=== PATIENT | male | born 1975 | race Caucasian/White ===

== ENCOUNTER 2018-04-16 12:42 | Emergency (ER) | payer OTHER ==
[2018-04-16 12:54] VITALS: BP 138/87
--- NOTE | 2018-04-16 13:13 | UC ---
Abdominal Pain Female HPI - HPI Summary HPI Summary: epigastric abdominal pain x 3 days sudden onset after eating lunch, pain has been constant, 3 out of 10 , radiating to his chest and jaw worse with rest , better by being busy mild nausea, no vomiting , no diarrhea or constipation , no fever, no chills, no dysuria - History of Current Complaint Chief Complaint: UCAbdominalPain Stated Complaint: ABD PAIN Time Seen by Provider: 04/16/18 12:50 Hx Obtained From: Patient Onset/Duration: Sudden Onset, Lasting Days - 3, Still Present Timing: Constant Severity Initially: Mild Severity Currently: Moderate Pain Intensity: 1 Location: Epigastric Radiates to: Back, Chest Character: Burning, Cramping Aggravating Factor(s): Food, Other: - rest Alleviating Factor(s): Nothing Associated Signs and Symptoms: Negative: Fever, Cough, Chest Pain, Dizzy, Back Pain, Constipation, Blood in Stool, Urinary Symptoms, Decreased Appetite, Nausea , Vomiting, Diarrhea Allergies/Adverse Reactions: Allergies Allergy/AdvReac Type Severity Reaction Status Date / Time hay fever Allergy Congestion Uncoded 04/16/18 12:48 Home Medications: Home Medications Calcium Carbonate CHEW TAB* [Tums*] 1,500 mg PO ONCE PRN 04/16/18 [History Confirmed 04/16/18] PMH/Surg Hx/FS Hx/Imm Hx Previously Healthy: Yes - Surgical History Surgical History: None - Family History Known Family History: Negative: Diabetes - Social History Alcohol Use: Occasionally Substance Use Type: None Smoking Status (MU): Never Smoked Tobacco Review of Systems All Other Systems Reviewed And Are Negative: Yes Constitutional: Positive: Negative Skin: Positive: Negative Eyes: Positive: Negative ENT: Positive: Negative Respiratory: Positive: Negative Gastrointestinal: Positive: Abdominal Pain, Nausea. Negative: Vomiting, Diarrhea Genitourinary: Negative: Dysuria, Hematuria, Frequency, Urgency, Vaginal/Penile Burning, Vaginal/Penile Itching, Vaginal/Penile Discharge, Vaginal/Penile Pain, Vaginal/Penile Tenderness, Ulceration/Lesion, Abnormal Bleeding Is Patient Immunocompromised?: No Physical Exam Triage Information Reviewed: Yes Appearance: Well-Appearing, No Pain Distress, Well-Nourished Vital Signs: Initial Vital Signs Temp 97.3 F 04/16/18 12:49 Pulse 52 04/16/18 12:49 Resp 15 04/16/18 12:49 BP 138/87 04/16/18 12:49 Pulse Ox 100 04/16/18 12:49 Vital Signs Reviewed: Yes Eye Exam: Normal Eyes: Positive: Conjunctiva Clear ENT: Positive: Normal ENT inspection, Hearing grossly normal, Pharynx normal Neck: Positive: Supple, Nontender, No Lymphadenopathy Respiratory: Positive: Chest non-tender, Lungs clear, Normal breath sounds, No respiratory distress Cardiovascular: Positive: No Murmur, Bradycardia Abdomen Description: Positive: Soft, Other: - epigastric tenderness, negative Culver sign. Negative: CVA Tenderness (R), CVA Tenderness (L), Distended, Guarding Bowel Sounds: Positive: Present Abd Pain Female Course/Dx - Differential Dx/Diagnosis Provider Diagnosis: Gastritis Discharge - Sign-Out/Discharge Documenting (check all that apply): Patient Departure All imaging exams completed and their final reports reviewed: No Studies - Discharge Plan Condition: Stable Disposition: HOME Prescriptions: Omeprazole 40 mg PO DAILY #30 capsule. Patient Education Materials: Gastritis (ED) Referrals: Theresa Willis MD [Primary Care Provider] - 5 Days Additional Instructions: will order blood work check your liver function and pancreatic function call the office tomorrow for the results please go to Emergency room if increase pain, may need abdominal CT or abdominal Ultrasound - Billing Disposition and Condition Condition: STABLE Disposition: Home
[2018-04-16 19:09] LABS: ABS Basophils 0 10^3/ul (0-0.2); ABS Eosinophils 0.1 10^3/ul (0-0.6); ABS Lymphocytes 0.9 10^3/ul (1.0-4.8); ABS Monocytes 0.6 10^3/ul (0-0.8); ABS Nucleated RBC 0 10^3/ul; Eosinophil % 1.7 %; Hematocrit 43 % (42-52); Lymphocyte % 19.7 %; Mean Corpuscular HGB Conc 35 g/dl (31-36); Mean Corpuscular Hemoglobin 31 pg (27-31); Mean Corpuscular Volume 87 fL (80-94); Mean Platelet Volume 8.3 fL (7.4-10.4); Nucleated Red Blood Cells % 0.3; Platelet Count 240 10^3/ul (150-450); Red Cell Distribution Width 13 % (10.5-15); White Blood Count 4.6 10^3/ul (3.5-10.8)
[2018-04-16 19:13] LABS: Albumin 4.6 g/dL (3.2-5.2); Albumin/Globulin Ratio 1.9 (1-3); BUN/Creatinine Ratio 12.2 (8-20); Calcium 9.2 mg/dL (8.6-10.3); EGFR Non-African American 92.5 (>60); Globulin 2.4 g/dL (2-4); Total Bilirubin 0.5 mg/dL (0.2-1.0)
== END 2018-04-16 13:19 | disposition home or self-care (01) ==
LOC: UCCORT 12:42
DX: K29.70 Gastritis, unspecified, without bleeding (principal)
CPT/HCPCS: 36415; 80053; 82150; 83690; 85025; 93005; 99202; G0463

== ENCOUNTER 2018-11-24 11:32 | Emergency (ER) | payer OTHER ==
[2018-11-24 11:43] VITALS: BP 151/95
--- NOTE | 2018-11-24 12:00 | UC ---
Eye Complaint HPI - HPI Summary HPI Summary: Returned from [place] Sunday night. Pt states he put in a contact that was misshapen. Soon after, he felt right eye pain and put in a new pair of contacts. His right eye continued to bother him. He has flushed it several times and has been rubbing his right eye to the point the right upper eyelid was swollen this morning. He has also had pus drainage today. Denies any fever or chills. - History of Current Complaint Chief Complaint: UCEye Stated Complaint: RIGHT EYE CONCERN Time Seen by Provider: 11/24/18 11:59 Hx Obtained From: Patient Onset/Duration: Gradual Onset Timing: Constant Severity Initially: Mild Severity Currently: Moderate Pain Intensity: 8 Location of Injury: Other - no injury Character: Dull Aggravating Factor(s): Light, Contact Lens Alleviating Factor(s): Nothing Associated Signs And Symptoms: Positive: Photophobia, Drainage (Purulent). Negative: Vision Impairment Bilateral, Vision Impairment Right, Vision Impairment Left, Fever, Swelling - Allergies/Home Medications Allergies/Adverse Reactions: Allergies Allergy/AdvReac Type Severity Reaction Status Date / Time hay fever Allergy Congestion Uncoded 11/24/18 11:42 PMH/Surg Hx/FS Hx/Imm Hx Previously Healthy: Yes - Surgical History Surgical History: None - Family History Known Family History: Positive: Non-Contributory Negative: Diabetes - Social History Alcohol Use: Occasionally Substance Use Type: None Smoking Status (MU): Never Smoked Tobacco Review of Systems All Other Systems Reviewed And Are Negative: Yes Eyes: Positive: Drainage - Pus drainage, Eye Redness, Photophobia - Mildly light sensitive. Is Patient Immunocompromised?: No Physical Exam Triage Information Reviewed: Yes Appearance: Well-Appearing, No Pain Distress, Well-Nourished Vital Signs: Initial Vital Signs Temp 98.1 F 11/24/18 11:40 Pulse 77 11/24/18 11:40 Resp 18 11/24/18 11:40 BP 151/95 11/24/18 11:40 Pulse Ox 99 11/24/18 11:40 Vital Signs Reviewed: Yes Eyes: Positive: Conjunctiva Inflamed, Discharge - yellow purulent drainage right eye., Other: - PERRLA, EOMI Musculoskeletal Exam: Normal Neurological Exam: Normal Psychological Exam: Normal Skin Exam: Normal Eye Complaint Course/Dx - Course Course Of Treatment: After instillation of Tetracaine drops in the right eye, no FB was noted. I then instilled fluorescein in right eye and visualised using the Wood's Lamp, a small corneal ulceration mid-cornea. Globe is intact. This was confirmed by Dr. Johnson. The pt is advised to follow up with the ophthamologist in the morning for a recheck, no contact lenses until healed. - Differential Dx/Diagnosis Provider Diagnosis: Corneal ulcer, right Discharge - Sign-Out/Discharge Documenting (check all that apply): Patient Departure All imaging exams completed and their final reports reviewed: No Studies - Discharge Plan Condition: Fair Disposition: HOME Prescriptions: Tobramycin 0.3% OPHTH.MIRANDA* 1 drop RIGHT EYE Q4H 7 Days #1 btl Patient Education Materials: Corneal Ulcer (ED) Referrals: Angelita Baxter MD [Primary Care Provider] - Nickolas Mcarthur MD [Medical Doctor] - Additional Instructions: Rest today, Tylenol/Motrin as directed for pain. Sunglasses. If any loss of vision go to the ER. - Billing Disposition and Condition Condition: FAIR Disposition: Home
[2018-11-24] MEDS ORDERED: Fluorescein Sodium TOPICAL* 1 MG TEST STRIP OPHTHALMIC ONE (12:06)
[2018-11-24] MEDS ORDERED: Tetracaine 0.5% OPTH.SOL 4 ML* 1 DROP BTL LEFT EYE ONE (12:06)
== END 2018-11-24 12:37 | disposition home or self-care (01) ==
LOC: UCCORT 11:32
DX: H16.001 Unspecified corneal ulcer, right eye (principal)
CPT/HCPCS: 99212; A9270-GY; G0463